=== PATIENT | female | born 1975 | race Caucasian/White ===

== ENCOUNTER 2016-04-20 15:33 | Emergency (ER) | payer MEDICARE | END 2016-04-20 16:37 | disposition home or self-care (01) | LOC: D.ER 15:33 | DX: F41.9 Anxiety disorder, unspecified (principal); F17.200 Nicotine dependence, unspecified, uncomplicated ==

== ENCOUNTER 2019-10-02 19:00 | Outpatient (CLI) | payer MEDICARE | END 2019-10-02 23:59 | disposition home or self-care (01) | LOC: D.MAMMO 19:00 | PROVIDERS: ATTEND Family Medicine Adult Medicine | DX: Z12.31 Encounter for screening mammogram for malignant neoplasm of breast (principal) ==

== ENCOUNTER 2020-09-28 16:54 | Emergency (ER) | payer MEDICARE ==
[~2020-09-28] VITALS: Ht 170.2 cm; Wt 63.6 kg
[2020-09-28 16:58] VITALS: Ht 170.2 cm; Wt 63.6 kg
[2020-09-28] MEDS ORDERED: HYDROCODONE-AC1 EAC2 PO (19:55)
[2020-09-28 20:17] VITALS: BP 126/77
== END 2020-09-28 20:18 | disposition home or self-care (01) ==
LOC: D.ER 16:54
DX: S01.01XA Laceration without foreign body of scalp, initial encounter (principal); X58.XXXA Exposure to other specified factors, initial encounter